=== PATIENT | female | born 1970 | race Caucasian/White ===

== ENCOUNTER 2016-12-30 07:32 | Emergency (ER) | payer BC ==
[~2016-12-30] VITALS: Ht 167.6 cm; Wt 56.7 kg
[2016-12-30] MEDS ORDERED: KEPPRA1000 MG ORAL (07:45)
[2016-12-30] MEDS ORDERED: Fleet's Enema 133ml RECTAL ONE (08:15)
[2016-12-30 09:01] VITALS: BP 99/61
--- NOTE | 2016-12-30 09:02 | Emergency Room Report ---
History of Present Illness General Chief Complaint: Abdominal Pain Source: Patient, Family Member Present Illness HPI 46YOF presents with , walk-in patient with constipation for 3-4 days now with worsening abd pain. Not passing gas. Very bloated. Worse after OTC dulocolax last night. Had "projectile vomiting" 10 days ago. Both she and had "stomach flu" recently. Denies other medical problems, previous abd/ pelvic surgery. Denies urinary complaints. States under a lot of stress lately , eating habits unhealthy/changed, not drinking enough water. Allergies: Coded Allergies: PENICILLINS (Verified Allergy, Unknown, 12/30/16) Patient History Past Medical History: none Past Surgical History: none Pertinent Family History: none Social History: Denies: alcohol use, drug use, smoking Last Menstrual Period: unknown Now: No Immunizations: UTD Reviewed Nursing Documentation: PMH: Agreed, PSxH: Agreed Nursing Documentation-PMH Hx Seizures: Yes - last seizure 3 years ago Review of Systems All Other Systems: negative except mentioned in HPI Physical Exam Vital Signs Date Time Temp Pulse Resp B/P Pulse Ox O2 Delivery O2 Flow Rate FiO2 12/30/16 07:38 97.3 66 20 98/59 98 Room Air Sp02 EP Interpretation: reviewed, normal General Appearance: normal inspection, well appearing, alert, GCS 15, non-toxic , moderate distress Head: normocephalic, atraumatic Eyes: bilateral eye EOMI, bilateral eye PERRL ENT: normal ENT inspection, hearing grossly normal, normal voice Neck: normal inspection, full range of motion, supple, no bony tend Respiratory: normal inspection, lungs clear, normal breath sounds, no respiratory distress, no retraction, no wheezing Cardiovascular #1: regular rate, rhythm, no edema Gastrointestinal: no mass, no organomegaly, no rebound, distended, other - hyperactive bowel sounds Genitourinary: no CVA tenderness Musculoskeletal: normal inspection, back normal, normal range of motion, Kala' s Sign negative Neurologic: normal inspection, alert, oriented x3, responsive, 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, motor strength/tone normal, speech normal Psychiatric: normal inspection, judgement/insight normal, mood/affect normal Skin: normal inspection, normal color, no rash Lymphatic: normal inspection Medical Decision Making Diagnostic Impression: Primary Impression: Constipation Qualified Codes: K59.00 - Constipation, unspecified ER Course 46YOF with constipation likely from change in eating habits, recent gastroenteritis viral illness No risk factors for SBO Significant BM after Fleets enema in ED Feels much better Abd soft, NT/ND on serial exam Tolerating PO Advised better eating habits, water intake PMD followup DC home Last Vital Signs Date Time Temp Pulse Resp B/P Pulse Ox O2 Delivery O2 Flow Rate FiO2 12/30/16 07:38 97.3 66 20 98/59 98 Room Air Status: improved Disposition: HOME, SELF-CARE Condition: Improved Patient Instructions: Constipation, Adult, [id number] ANGELIC SAMPSON M.D. Dec 30, 2016 09:02
[2016-12-30 09:13] VITALS: BP 99/61
== END 2016-12-30 09:13 | disposition home or self-care (01) ==
LOC: EMR 08:13
DX: K59.00 Constipation, unspecified (principal); Z88.0 Allergy status to penicillin
CPT/HCPCS: 99283